=== PATIENT | male | born 1950 | race Caucasian/White ===

== ENCOUNTER 2022-04-20 09:03 | Emergency (ER) | payer MEDICARE, SELFPAY ==
--- NOTE | ~2022-04-20 | XR_ITS ---
XR chest 2V DATE: 04/20/2022 09:46 INDICATION: Persistent cough for 10 days TECHNIQUE: 2 views COMPARISON: None FINDINGS: Right Port-A-Cath catheter tip overlies the upper right atrium. No pulmonary infiltrate or consolidation, pleural effusion or pulmonary vascular congestion or pneumo thorax. Normal heart size. Is aortic calcification and mild unfolding. No hilar or mediastinal enlargement. Scoliosis and degenerative change of the thoracic spine. IMPRESSION: Right Port-A-Cath catheter at upper right atrial area No active cardiopulmonary disease Levoscoliosis and degenerative change of the thoracic spine Reviewed, dictated and finalized at location B.
[2022-04-20 09:18] VITALS: BP 114/65; PULSE 80; RESP 20; TEMP 36.7; O2SAT 97
--- NOTE | 2022-04-20 09:41 | ED.URI ---
HPI - URI/Sore Throat General Chief Complaint: Upper Respiratory Infection Stated Complaint: Cough Time Seen by Provider: 04/20/22 09:41 Source: patient, family, RN notes reviewed and old records reviewed Mode of arrival: ambulatory Limitations: no limitations History of Present Illness HPI Narrative: 71-year-old male who presents to [facility] care accompanied by with complaints of 10-day history of dry cough, denies any fevers, chills or any sweats. Patient reports that he has been taking DayQuil and NyQuil for his symptoms and he also takes Zyrtec daily. Patient reports that he had Covid in June of 2021 and he had a lot of general weakness and fatigue since then he also has MDS and has port that he takes infusions for it if his blood level indicate he needs it but has not required any for quite some time. reports that they are going to [place] this week and wanted to see if they could get anything for cough prior to going, they were unable to get into their doctor. Patient has had COVID vaccinations and also flu shot. MD elicited complaint: cough Onset (ago): day(s) (10) Treatments prior to arrival: other (Dayquil and Nyquil, zyrtec) Related Data Home Medications Medication Instructions Recorded Confirmed Vitamin D3 04/20/22 cetirizine 10 mg tablet (Zyrtec) 10 mg PO DAILY 04/20/22 04/20/22 lisinopril 10 mg tablet 10 mg PO DAILY 04/20/22 04/20/22 metformin 750 mg tablet,extended 750 mg PO DAILY 04/20/22 04/20/22 release 24 hr pravastatin 10 mg tablet 10 mg PO DAILY 04/20/22 04/20/22 Allergies Allergy/AdvReac Type Severity Reaction Status Date / Time No Known Allergies Allergy Verified 04/20/22 09:39 Review of Systems Review of Systems: CONSTITUTIONAL: Denies fever, chills, or sweats. EYES: Denies visual changes, redness, or discharge. ENT: Positive for rhinorrhea, no congestion, sore throat, or otalgia. CARDIOVASCULAR: Denies chest pain, palpitations, or edema. RESPIRATORY:Positive for cough denies dyspnea. GASTROINTESTINAL: Denies abdominal pain, nausea, vomiting, or diarrhea. GENITOURINARY: Denies dysuria or hematuria. SKIN: Denies rash or itching. MUSCULOSKELETAL: Denies back pain, joint pain, or myalgia. NEUROLOGIC: Denies headache, numbness, or weakness. PSYCHIATRIC: Denies anxiety or depression. All systems reviewed & are unremarkable except as noted in HPI and below PMFSH Past Medical History Medical History (Updated 04/21/22 @ 15:43 by Patti Kennedy NP) COVID-13 July 2021 Kidney stones kidney stones in September with stents and removal of stone MDS (myelodysplastic syndrome) Port-A-Cath in place Social History Social History (Updated 04/20/22 @ 09:59 by Patti Kennedy NP) Living arrangements: with family Gender identity (if verbalized by the patient): Male Comments At time of signature, agree with nursing past medical, surgical, social and family history. There is no relevant family history pertinent to the presenting complaint Exam Narrative: GENERAL: Well-appearing, well-nourished, and in no acute distress. HEAD: Normocephalic, atraumatic. EYES: PERRLA and EOMI. ENT: Nares red with clear rhinorrhea no epistaxis. Mucous membranes moist.TM's normal with good light reflex, some old wax noted, throat pink with no lesions or exudates or tonsil swelling NECK: Supple. no lymphadenopathy CHEST: Decreased to auscultation. No respiratory distress. SAO2 97% on room air dry cough for past 10 days HEART: Regular rate and rhythm. No murmur heard. Normal peripheral pulses. ABDOMEN: Soft, nontender, nondistended, normal active bowel sounds. EXTREMITIES: Normal range of motion. No edema. SKIN: Warm, dry, no rash. NEURO: No focal deficits. Alert and oriented x3. Course Course Level of Care: Express Care Visit Vital Signs Vital signs: Vital Signs Temperature 36.7 C 04/20/22 09:18 Pulse Rate 80 04/20/22 09:18 Respiratory Rate 20 04/20/22 09:18 Blood Pressure 11
[2022-04-20 09:44] VITALS: BP 114/65; PULSE 80; RESP 20; TEMP 36.7; O2SAT 97
== END 2022-04-20 10:14 | disposition home or self-care (01) ==
PROVIDERS: Emergency Provider Registered Nurse; PCP Internal Medicine
DX: J06.9 Acute upper respiratory infection, unspecified (principal); D46.9 Myelodysplastic syndrome, unspecified; Z86.16 Personal history of COVID-19
CPT/HCPCS: 71046; 99213; G0463